=== PATIENT | female | born 1945 | race Caucasian/White ===

== ENCOUNTER 2017-09-07 19:50 | Emergency (ER) | payer MEDICARE, BC ==
[~2017-09-07] VITALS: Ht 160 cm; Wt 63.6 kg
[~2017-09-07 19:50] MED LIST: AMLO5TAB PO; ASPI-611 PO; CHOL10008 PO; DOCU100C40 PO; FISH1CAP15 PO; GABA-581 PO; LISI10TA4 PO; LORA10TA7 PO; MULT-1141 PO; NORCO10T PO; OXYB5TAB80 PO; PANT40TA4 PO; POTA20TA19 PO; PYRI100T2 PO; ROSU5TAB PO; SENN8.6T19 PO; calcium PO
[2017-09-07 20:18] LABS: BASOPHILS # (AUTO) 0.1 X10'3 (0-0.2); BASOPHILS % (AUTO) 0.4 % (0-1); EOSINOPHILS # (AUTO) 0.6 X10'3 (0-0.9); EOSINOPHILS % (AUTO) 4.8 % (0-6); HEMATOCRIT 41.6 % (35.0-45.0); HEMOGLOBIN 14.2 g/dl (12.0-16.0); LYMPHOCYTES % (AUTO) 31.9 % (21-51); MEAN CORPUSCULAR HEMOGLOBIN 32.4 PG (27.0-31.0); MEAN CORPUSCULAR HGB CONC 34.1 % (33.0-36.5); MEAN CORPUSCULAR VOLUME 94.9 FL (78-98); MONOCYTES # (AUTO) 0.9 X10'3 (0-0.9); MONOCYTES % (AUTO) 7.5 % (2-12); NEUTROPHILS # (AUTO) 6.9 X10'3 (1.8-7.7); NEUTROPHILS % (AUTO) 55.4 % (42-75); PLATELET COUNT 252 X10'3 (140-440); RED BLOOD COUNT 4.39 X10'6 (4.20-5.60); RED CELL DISTRIBUTION WIDTH 15.1 % (11.5-14.5); WHITE BLOOD COUNT 12.4 X10'3 (4.5-11.0)
[2017-09-07 20:27] LABS: PARTIAL THROMBOPLASTIN TIME 28 SECONDS (22-32); PROTHROMBIN TIME 10.3 SECONDS (9.0-12.0)
[2017-09-07 20:32] LABS: ALANINE AMINOTRANSFERASE 21 U/L (12-78); ALBUMIN 3.6 G/DL (3.4-5.0); ALBUMIN/GLOBULIN RATIO 1.1 (1.1-1.5); ALKALINE PHOSPHATASE 90 IU/L (46-116); ANION GAP 9 (8-16); ASPARTATE AMINO TRANSFERASE 18 U/L (10-37); BILIRUBIN,TOTAL 0.5 MG/DL (0.1-1.0); BLOOD UREA NITROGEN 14 MG/DL (7-18); BUN/CREATININE RATIO 6.6 (6.6-38.0); CALCIUM 8.6 MG/DL (8.5-10.1); CHLORIDE 96 MMOL/L (99-107); CREATININE 2.13 MG/DL (0.40-0.90); GLUCOSE 130 MG/DL (70-104); POTASSIUM 3.8 MMOL/L (3.5-5.1); SODIUM 132 MMOL/L (135-145); TOTAL CARBON DIOXIDE 26.8 MMOL/L (24-32); eGFR 23 ML/MIN
[2017-09-07] MEDS ORDERED: normal saline 1000ML IV soln IVB ONE (21:05)
[2017-09-07 21:06] LABS: CLARITY,URINE SLIGHTLY CLOUDY (Clear); COLOR,URINE YELLOW (Yellow); GLUCOSE, URINE NEGATIVE (Neg); KETONES,URINE TRACE mg/dl (Neg); LEUKOCYTE ESTERASE ,URINE NEGATIVE (Neg); NITRITES, URINE NEGATIVE (Neg); OCCULT BLOOD,URINE NEGATIVE (Neg); PROTEIN,URINE 100 mg/dl (Neg); UROBILINOGEN,URINE 0.2 E.U/dL (0.2-1.0)
[2017-09-07 21:10] LABS: UA COLLECTION TYPE CLN CATCH MIDSTREAM
[2017-09-07 21:14] LABS: BACTERIA,URINE 2+ /HPF (Neg); MUCUS STRANDS MODERATE /LPF (Neg); SQUAMOUS EPITHELIAL CELL,UR FEW /LPF (FEW)
[2017-09-07 21:51] VITALS: BP 143/66
== END 2017-09-07 21:54 | disposition home or self-care (01) ==
LOC: ER 19:50
DX: R53.1 Weakness (principal); I10 Essential (primary) hypertension; I71.4 Abdominal aortic aneurysm, without rupture; Z90.49 Acquired absence of other specified parts of digestive tract; Z79.82 Long term (current) use of aspirin; Z79.899 Other long term (current) drug therapy
CPT/HCPCS: 36415; 71045; 80053; 81001; 84484; 85025; 85610; 85730; 87077; 87088; 87186; 93005; 96360; 99285; J7030

== ENCOUNTER 2019-01-19 05:22 | Inpatient (IN) | payer MEDICARE, BC ==
[2019-01-14 11:44] LABS: BASOPHILS # (AUTO) 0.1 X10'3 (0-0.2); BASOPHILS % (AUTO) 0.8 % (0-1); EOSINOPHILS # (AUTO) 0.6 X10'3 (0-0.9); EOSINOPHILS % (AUTO) 6.7 % (0-6); LYMPHOCYTES # (AUTO) 3.2 X10'3 (1.1-4.8); LYMPHOCYTES % (AUTO) 38.3 % (21-51); MEAN CORPUSCULAR HEMOGLOBIN 32.4 PG (27.0-31.0); MEAN CORPUSCULAR HGB CONC 34.6 g/dL (33.0-36.5); MEAN CORPUSCULAR VOLUME 93.6 FL (78-98); MEAN PLATELET VOLUME 6.1 FL (7.4-10.4); MONOCYTES # (AUTO) 0.5 X10'3 (0-0.9); MONOCYTES % (AUTO) 6.3 % (2-12); NEUTROPHILS % (AUTO) 47.9 % (42-75); PRE OP HEMATOCRIT 43.2 % (35.0-45.0); PRE OP HEMOGLOBIN 14.9 g/dL (12.0-16.0); PRE OP PLATELET COUNT 261 X10'3 (140-440); RED BLOOD COUNT 4.61 X10'6 (4.20-5.60); RED CELL DISTRIBUTION WIDTH 14.6 % (11.5-14.5)
[2019-01-14 12:01] LABS: PRE OP PROTIME 10.1 SECONDS (9.0-12.0)
[2019-01-14 12:11] LABS: ALBUMIN 3.8 G/DL (3.4-5.0); ALKALINE PHOSPHATASE 88 IU/L (46-116); BLOOD UREA NITROGEN 14 MG/DL (7-18); BUN/CREATININE RATIO 11.7 (6.6-38.0); CALCIUM 8.8 MG/DL (8.5-10.1); CHLORIDE 101 MMOL/L (99-107); PRE OP ALT 29 U/L (30-65); PRE OP ANION GAP 8 (8-16); PRE OP AST 17 U/L (10-37); PRE OP BILIRUB, TOTAL 0.3 MG/DL (0.0-1.0); PRE OP GLUCOSE 99 MG/DL (70-104); PRE OP POTASSIUM 3.6 MMOL/L (3.4-5.1); PRE OP SODIUM 136 MMOL/L (135-145); TOTAL CARBON DIOXIDE 26.6 MMOL/L (24-32); TOTAL PROTEIN 7.5 G/DL (6.4-8.2); eGFR 44 ML/MIN
[2019-01-14 12:13] LABS: CLARITY,URINE CLEAR (Clear); COLOR,URINE YELLOW (Yellow); GLUCOSE, URINE NEGATIVE (Neg); KETONES,URINE NEGATIVE (Neg); LEUKOCYTE ESTERASE ,URINE NEGATIVE (Neg); NITRITES, URINE NEGATIVE (Neg); OCCULT BLOOD,URINE NEGATIVE (Neg); PROTEIN,URINE 30 mg/dl (Neg); UROBILINOGEN,URINE 0.2 E.U/dL (0.2-1.0)
[2019-01-14 12:17] LABS: UA COLLECTION TYPE CLN CATCH MIDSTREAM
[2019-01-14 12:18] LABS: BACTERIA,URINE FEW /HPF (Neg); RBC,URINE NONE SEEN /HPF (0-2); SQUAMOUS EPITHELIAL CELL,UR FEW /LPF (FEW); WBC,URINE 0-4 /HPF (0-4)
[~2019-01-19] VITALS: Ht 160 cm; Wt 64.4 kg
[2019-01-19] VITALS (27 sets, daily range): BP systolic 92–173; BP diastolic 47–73
[~2019-01-19 05:22] MED LIST changes: +ALBU8.5H8 INH; -ASPI-611 PO; +ASPI81TA52 PO; +BUDE10.22 INH; -CHOL10008 PO; +CHOL50004 PO; +CYAN25003 PO; +DIPH25TA62 PO; +DOCU-148 PO; -DOCU100C40 PO; -FISH1CAP15 PO; +IBUP-1986 PO; +LEG CRAMPS PO; -LISI10TA4 PO; -LORA10TA7 PO; +MECL-111 PO; -MULT-1141 PO; -NORCO10T PO; +OXYB5TAB16 PO; -OXYB5TAB80 PO; +PANT-47 PO; -PANT40TA4 PO; +POTA-82 PO; -POTA20TA19 PO; -PYRI100T2 PO; +QUIN1TAB25 PO; +SENN-162 PO; -SENN8.6T19 PO; -calcium PO; +ringers solution, lacted 1,000 ML IV SCH
[2019-01-19] MEDS ORDERED: cefazolin/dext.iso 2gm/50ml 50 ML IV ONE (05:30)
[2019-01-19] MEDS ORDERED: famotidine 20mg tablet PO ONE (05:30)
[2019-01-19] MEDS ORDERED: albuterol 2.5 MG/3 ML nebule NEB ONE (05:30)
[2019-01-19] MEDS ORDERED: DOCUMENT DATE & TIME OF BETA-BLOCKER PO ONE (05:30)
[2019-01-19] MEDS ORDERED: nitroGLYCERIN-Tridil 50MG/D5W 250 ML IV PRN (05:32)
[2019-01-19] MEDS ORDERED: LIDOcaine 1% (10mg/ml) 2ml vial ONE ×2 (05:45→07:22)
[2019-01-19] MEDS ORDERED: heparin 10,000 units/1 ML INJ ONE ×2 (07:14→07:22)
[2019-01-19] MEDS ORDERED: LIDOcaine 1% 30ml preserv. free vial ONE ×2 (07:15→07:22)
[2019-01-19] MEDS ORDERED: ringers solution, lacted 1,000 ML IV SCH (08:19)
[2019-01-19] MEDS ORDERED: proCHLORperazine 10 MG/2 ml inj IV PRN (08:20)
[2019-01-19] MEDS ORDERED: meperidine/PF 25mg/ml syringe IV PRN ×3 (08:20)
[2019-01-19] MEDS ORDERED: ondansetron/PF 4mg/2ml inj IV PRN ×2 (08:20→08:55)
[2019-01-19] MEDS ORDERED: morphine 4 MG/ML inj SYRINge IV PRN ×2 (08:20)
[2019-01-19] MEDS ORDERED: ePHEDrine 50MG/ML INJ. ONE (08:27)
[2019-01-19] MEDS ORDERED: ondansetron/PF 4mg/2ml inj ONE (08:27)
[2019-01-19] MEDS ORDERED: dexamethasone sod phosphate 10mg/ml inj ONE (08:27)
[2019-01-19] MEDS ORDERED: sevoflurane 250ml liquid IH ONE (08:27)
[2019-01-19] MEDS ORDERED: neostigmine methylsulfate 1 MG/ML 10ml vial ONE (08:27)
[2019-01-19] MEDS ORDERED: midazolam 2 mg/2 ml injection ONE (08:30)
[2019-01-19] MEDS ORDERED: propofol inj 20 ML IV ONE (08:30)
[2019-01-19] MEDS ORDERED: rocuronium 10mg/ml inj IV ONE (08:30)
[2019-01-19] MEDS ORDERED: fentaNYL/PF 50MCG/1 ML 2ML syringe ONE (08:30)
[2019-01-19] MEDS ORDERED: naloxone 0.4 mg/ml inj IV PRN (08:55)
[2019-01-19] MEDS ORDERED: CADD PCA waste documentation MC PRN (08:55)
[2019-01-19] MEDS ORDERED: sugammadex 200mg/2ml injection IV ONE (09:27)
--- NOTE | 2019-01-19 10:25 | NUR ---
NEUROCHECKS COMPLETE AND PATIENT SHOWS NO OBSERVABLE NEUROLOGICAL DEFICITS FROM BASELINE AT THIS TIME.
--- NOTE | 2019-01-19 10:25 | NUR ---
Received from OR via BED , accompanied by Anesthesiologist DR LENZ and report given by Anesthesiolgist. PATIENT WAKING UP, C/O PAIN CADD TO BE STARTED, V/S WNL, NEUROVASCULAR CHECKS INTACT. 18G RUE, ART LINE RUE, SCD ON, DRESSING TO LEFT NECK CDI WITH NARESH WITH MINIMAL OUTPUT.
[2019-01-19] MEDS: HYDROmorphone/NS 1 mg/ml CADD 50 ML IV SCH ×8 (10:33→23:00)
--- NOTE | 2019-01-19 11:45 | NUR ---
PATIENT A&OX4, DENIES PAIN, V/S WNL, NEUROVASCULAR CHECKS INTACT. 20G PIV, ART LINE RUE, CLEAR , SCD ON, DRESSING TO LEFT NECK CDI WITH NARESH WITH MINIMAL OUTPUT. TAKEN TO ICU WITH ALL BELONGINGS AND HOOKED UP TO MONITORS IN ROOM AND REPORT GIVEN TO RECOVERER WHO HAS TAKEN OVER PATIENT CARE.
[2019-01-19] MEDS ORDERED: diphenhydrAMINE 25mg capsule PO PRN (12:35)
[2019-01-19] MEDS: phenylephrine inj 20 MG in normal saline 250ml IV soln 248 ML IV SCH ×3 (12:40→19:20)
--- NOTE | 2019-01-19 13:30 | NUR ---
patient on nipride, blood pressure dropped to 59/22 and heart rate to 48., patient became symptomatic and nauseous. Nipride turned off and phenylephrine was started at 25mcg. Patient blood pressure increased so phenylephrine was titrated. Phenylephrine was then at 0.2mcg and patients blood pressure stayed within parameters.
[2019-01-19 14:24] LABS: BASOPHILS # (AUTO) 0.1 X10'3 (0-0.2); BASOPHILS % (AUTO) 0.6 % (0-1); EOSINOPHILS % (AUTO) 0.2 % (0-6); LYMPHOCYTES % (AUTO) 12.6 % (21-51); MEAN CORPUSCULAR HEMOGLOBIN 32.1 PG (27.0-31.0); MEAN CORPUSCULAR HGB CONC 33.7 g/dL (33.0-36.5); MEAN CORPUSCULAR VOLUME 95.3 FL (78-98); MEAN PLATELET VOLUME 6.5 FL (7.4-10.4); MONOCYTES # (AUTO) 0.2 X10'3 (0-0.9); MONOCYTES % (AUTO) 1.3 % (2-12); NEUTROPHILS # (AUTO) 13.6 X10'3 (1.8-7.7); NEUTROPHILS % (AUTO) 85.3 % (42-75); PRE OP HEMATOCRIT 36.2 % (35.0-45.0); PRE OP HEMOGLOBIN 12.2 g/dL (12.0-16.0); PRE OP PLATELET COUNT 252 X10'3 (140-440); RED CELL DISTRIBUTION WIDTH 14.4 % (11.5-14.5)
[2019-01-19 14:34] LABS: ALBUMIN 3.1 G/DL (3.4-5.0); ALKALINE PHOSPHATASE 70 IU/L (46-116); BLOOD UREA NITROGEN 9 MG/DL (7-18); BUN/CREATININE RATIO 8.3 (6.6-38.0); CALCIUM 7.9 MG/DL (8.5-10.1); CHLORIDE 102 MMOL/L (99-107); CREATININE 1.08 MG/DL (0.40-0.90); PRE OP ALT 29 U/L (30-65); PRE OP ANION GAP 7 (8-16); PRE OP AST 27 U/L (10-37); PRE OP BILIRUB, TOTAL 0.3 MG/DL (0.0-1.0); PRE OP GLUCOSE 149 MG/DL (70-104); PRE OP SODIUM 137 MMOL/L (135-145); TOTAL CARBON DIOXIDE 27.8 MMOL/L (24-32); TOTAL PROTEIN 6.3 G/DL (6.4-8.2); eGFR 50 ML/MIN
[2019-01-19 14:43] LABS: PRE OP POTASSIUM 2.9 MMOL/L (3.4-5.1)
[2019-01-19] MEDS ORDERED: potassium Cl 20mEq/100mL bag 100 ML IV PRN (14:55)
[2019-01-19] MEDS ORDERED: potassium Cl 20 mEq SR tablet PO PRN (15:50)
[2019-01-19 16:09] LABS: MAGNESIUM 1.7 MG/DL (1.5-2.4)
[2019-01-19] MEDS: potassium Cl 20 mEq SR tablet PO PRN ×2 (16:28→20:18)
--- NOTE | 2019-01-19 16:30 | NUR ---
Patient in room ICU 2037. I have received report from Tram FRIEND and had the opportunity to ask questions and assume patient care. Pt switched back to Nipride for high BP.
--- NOTE | 2019-01-19 18:24 | NUR ---
Problems reprioritized. Patient report given, questions answered & plan of care reviewed with Bandar FRIEND.
[2019-01-19] MEDS: nitroPRUSSIDE in NS 100 ML IV PRN (19:14)
[2019-01-19] MEDS: potassium Cl 20 mEq SR tablet PO SCH (20:00)
[2019-01-19] MEDS ORDERED: ibuprofen 200mg tablet PO SCH (20:00)
[2019-01-19] MEDS: gabapentin 300mg capsule PO SCH (20:19)
[2019-01-19] MEDS: meclizine 12.5mg tablet PO SCH (20:19)
[2019-01-19] MEDS: sennosides 8.6mg tablet PO SCH (20:19)
[2019-01-19] MEDS: budesonide 0.5mg/2ml UD nebule IH SCH (20:39)
[2019-01-20] VITALS (24 sets, daily range): BP systolic 140–165; BP diastolic 53–97
[2019-01-20] MEDS: potassium Cl 20 mEq SR tablet PO PRN (00:48)
[2019-01-20] MEDS: HYDROmorphone/NS 1 mg/ml CADD 50 ML IV SCH ×12 (01:00→23:00)
[2019-01-20] MEDS: phenylephrine inj 20 MG in normal saline 250ml IV soln 248 ML IV SCH ×4 (02:00→22:00)
[2019-01-20] MEDS ORDERED: acetaminophen 325mg tablet PO PRN (02:25)
[2019-01-20 03:53] LABS: MAGNESIUM 1.8 MG/DL (1.5-2.4); POTASSIUM 5.4 MMOL/L (3.5-5.1)
[2019-01-20] MEDS: nitroPRUSSIDE in NS 100 ML IV PRN ×2 (05:55→10:23)
--- NOTE | 2019-01-20 06:35 | NUR ---
Patient in room ICU 2037. I have received report from RONNA Portillo and had the opportunity to ask questions and assume patient care.
[2019-01-20] MEDS: lisinopril 20mg tablet PO SCH (07:35)
[2019-01-20] MEDS: amLODIPine 5mg tablet PO SCH (07:35)
[2019-01-20] MEDS: aspirin 81mg tablet.DR PO SCH (07:35)
[2019-01-20] MEDS: gabapentin 300mg capsule PO SCH ×2 (07:35→20:30)
[2019-01-20] MEDS: meclizine 12.5mg tablet PO SCH ×2 (07:35→20:29)
[2019-01-20] MEDS: cyanocobalamin 500mcg tablet PO SCH (07:35)
[2019-01-20] MEDS: enoxaparin 40mg/0.4ml syringe SQ SCH (07:36)
[2019-01-20] MEDS: vitamin D (cholecalciferol) 1,000 unit tablet PO SCH (07:36)
[2019-01-20] MEDS: HYDROchlorothiazide 12.5mg capsule PO SCH (07:36)
[2019-01-20] MEDS: pantoprazole 40mg Tablet.DR PO SCH (07:36)
[2019-01-20] MEDS: docusate sod 100mg capsule PO SCH (07:36)
[2019-01-20] MEDS: K and/or MAG REPLACEMENT MC SCH (08:00)
[2019-01-20] MEDS: potassium Cl 20 mEq SR tablet PO SCH ×2 (08:00→20:00)
[2019-01-20] MEDS ORDERED: nitroGLYCERIN-Tridil 50MG/D5W 250 ML IV PRN (09:39)
[2019-01-20] MEDS: albuterol 2.5 MG/3 ML nebule NEB PRN (10:00)
[2019-01-20 13:30] LABS: ALBUMIN 3.2 G/DL (3.4-5.0); ANION GAP 9 (8-16); BLOOD UREA NITROGEN 11 MG/DL (7-18); BUN/CREATININE RATIO 9.8 (6.6-38.0); CALCIUM 8.4 MG/DL (8.5-10.1); CHLORIDE 103 MMOL/L (99-107); CREATININE 1.12 MG/DL (0.40-0.90); GLUCOSE 101 MG/DL (70-104); PHOSPHORUS 4.3 MG/DL (2.3-4.5); SODIUM 135 MMOL/L (135-145); eGFR 48 ML/MIN
--- NOTE | 2019-01-20 18:19 | NUR ---
Problems reprioritized. Patient report given, questions answered & plan of care reviewed with RONNA Zuñiga.
--- NOTE | 2019-01-20 18:30 | NUR ---
Patient in room ICU 2037. I have received report from Merle FRIEND and had the opportunity to ask questions and assume patient care.
--- NOTE | 2019-01-20 20:00 | NUR ---
Patient tolerated full liquid dinner well, still complains of left surgical sight being numb. Nipride infusing per MD order as patient is hypertensive into the 180's but able to titrate down. Will continue to monitor patient.
[2019-01-20] MEDS: sennosides 8.6mg tablet PO SCH (20:30)
[2019-01-20] MEDS: budesonide 0.5mg/2ml UD nebule IH SCH (20:47)
[2019-01-21] VITALS (18 sets, daily range): BP systolic 112–172; BP diastolic 39–78
--- NOTE | 2019-01-21 00:39 | NUR ---
Nipride was off for 2hr duration but currently back on at 0.1 mcg due to increased BP. Will continue to monitor patient closely.
[2019-01-21] MEDS: HYDROmorphone/NS 1 mg/ml CADD 50 ML IV SCH ×12 (01:00→23:00)
[2019-01-21 03:39] LABS: MAGNESIUM 1.6 MG/DL (1.5-2.4); POTASSIUM 3.9 MMOL/L (3.5-5.1)
[2019-01-21] MEDS: nitroPRUSSIDE in NS 100 ML IV PRN (04:21)
[2019-01-21] MEDS: phenylephrine inj 20 MG in normal saline 250ml IV soln 248 ML IV SCH (04:40)
--- NOTE | 2019-01-21 06:15 | NUR ---
Patient in room ICU 2037. I have received report from restaurant shift supervisor and had the opportunity to ask questions and assume patient care.
[2019-01-21] MEDS: amLODIPine 5mg tablet PO SCH (07:07)
[2019-01-21] MEDS: HYDROchlorothiazide 12.5mg capsule PO SCH (07:07)
[2019-01-21] MEDS: budesonide 0.5mg/2ml UD nebule IH SCH ×2 (07:59→19:40)
[2019-01-21] MEDS: albuterol 2.5 MG/3 ML nebule NEB PRN ×2 (07:59→19:42)
[2019-01-21] MEDS: docusate sod 100mg capsule PO SCH (08:04)
[2019-01-21] MEDS: gabapentin 300mg capsule PO SCH ×2 (08:04→21:14)
[2019-01-21] MEDS: lisinopril 20mg tablet PO SCH (08:04)
[2019-01-21] MEDS: aspirin 81mg tablet.DR PO SCH (08:05)
[2019-01-21] MEDS: meclizine 12.5mg tablet PO SCH ×2 (08:05→21:14)
[2019-01-21] MEDS: pantoprazole 40mg Tablet.DR PO SCH (08:05)
[2019-01-21] MEDS: K and/or MAG REPLACEMENT MC SCH (08:09)
[2019-01-21] MEDS: vitamin D (cholecalciferol) 1,000 unit tablet PO SCH (08:12)
[2019-01-21] MEDS: cyanocobalamin 500mcg tablet PO SCH (08:12)
[2019-01-21] MEDS: potassium Cl 20 mEq SR tablet PO SCH ×2 (08:12→21:15)
[2019-01-21] MEDS: enoxaparin 40mg/0.4ml syringe SQ SCH (08:13)
--- NOTE | 2019-01-21 08:30 | NUR ---
I have reviewed and agree with all medications administered and interventions performed by [facility] Student Young aguilar Addendum: 01/21/19 at 0831 by Anusha Briones RT Amended: Links added.
[2019-01-21] MEDS: sennosides 8.6mg tablet PO SCH (21:15)
--- NOTE | 2019-01-21 22:42 | NUR ---
patient arrived on the unit after 1899. The vital signs taken ICU not this floor. Addendum: 01/21/19 at 2244 by Clary Henry RN Amended: Links added.
[2019-01-22] VITALS: BP 150/59
[2019-01-22] MEDS: HYDROmorphone/NS 1 mg/ml CADD 50 ML IV SCH ×3 (01:00→05:00)
--- NOTE | 2019-01-22 06:40 | NUR ---
Problems reprioritized. Patient report given, questions answered & plan of care reviewed with Iris FRIEND.
[2019-01-22 07:00] VITALS: BP 156/68
--- NOTE | 2019-01-22 07:00 | NUR ---
Patient in room [facility] [id number]. I have received report from Clary FRIEND and had the opportunity to ask questions and assume patient care.
[2019-01-22 07:20] LABS: MAGNESIUM 1.7 MG/DL (1.5-2.4)
[2019-01-22] MEDS: K and/or MAG REPLACEMENT MC SCH (08:00)
[2019-01-22] MEDS: albuterol 2.5 MG/3 ML nebule NEB PRN (08:29)
[2019-01-22] MEDS: budesonide 0.5mg/2ml UD nebule IH SCH (08:29)
[2019-01-22] MEDS: vitamin D (cholecalciferol) 1,000 unit tablet PO SCH (08:47)
[2019-01-22] MEDS: aspirin 81mg tablet.DR PO SCH (08:48)
[2019-01-22] MEDS: pantoprazole 40mg Tablet.DR PO SCH (08:48)
[2019-01-22] MEDS: cyanocobalamin 500mcg tablet PO SCH (08:48)
[2019-01-22] MEDS: docusate sod 100mg capsule PO SCH (08:49)
[2019-01-22] MEDS: gabapentin 300mg capsule PO SCH (08:49)
[2019-01-22] MEDS: amLODIPine 5mg tablet PO SCH (08:49)
[2019-01-22] MEDS: meclizine 12.5mg tablet PO SCH (08:49)
[2019-01-22] MEDS: HYDROchlorothiazide 12.5mg capsule PO SCH (08:50)
[2019-01-22] MEDS: lisinopril 20mg tablet PO SCH (08:51)
[2019-01-22] MEDS: enoxaparin 40mg/0.4ml syringe SQ SCH (08:52)
[2019-01-22] MEDS: potassium Cl 20 mEq SR tablet PO SCH (08:59)
[2019-01-22] MEDS ORDERED: traMADol 50MG tablet PO PRN (10:50)
[2019-01-22 11:00] VITALS: BP 124/60
--- NOTE | 2019-01-22 11:33 | NUR ---
O2 Sat at rest on room air:_84__% If below 89%: Recovery O2 Sat at rest on __4_LPM:_91__%:___% via___NC (mask/nasal cannula, etc..) No further documentation is necessary. If O2 Sat did not drop below 89% on room air,ambulate patient on room air. O2 Sat while ambulating on room air:___% Recovery O2 Sat while ambulating on ___LPM:___% No further documentation is necessary. If patient does not drop below 89% while ambulating, he/she does not qualify for home O2.
--- NOTE | 2019-01-22 14:30 | NUR ---
Pt discharge to home with the help of her sister. Pt is A & O, taking home a portable O2 tank using 4L of O2 Q 24hrs. She will be following up with Dr. Gallegos in 1 week. pt wheeled to the front of hospital where her sister picked her up.
== END 2019-01-22 15:07 | disposition home or self-care (01) | DRG 38 ==
LOC: PAS IN 05:22 → EDSTATUS 10:15 → ICU 2S 11:52 → SUR 3N 01-21 17:06
PROVIDERS: ADMIT Surgery; ATTEND Surgery
PROC: 03CJ0ZZ Extirpation of Matter from Left Common Carotid Artery, Open Approach (ICD-10-PCS; 2019-01-19)
PROC: 03CL0ZZ Extirpation of Matter from Left Internal Carotid Artery, Open Approach (ICD-10-PCS; 2019-01-19)
PROC: 03UJ0KZ Supplement Left Common Carotid Artery with Nonautologous Tissue Substitute, Open Approach (ICD-10-PCS; 2019-01-19)
PROC: 03UL0KZ Supplement Left Internal Carotid Artery with Nonautologous Tissue Substitute, Open Approach (ICD-10-PCS; 2019-01-19)
PROC: 03UN0KZ Supplement Left External Carotid Artery with Nonautologous Tissue Substitute, Open Approach (ICD-10-PCS; 2019-01-19)
PROC: 03CN0ZZ Extirpation of Matter from Left External Carotid Artery, Open Approach (ICD-10-PCS; principal; 2019-01-19 08:27)
DX: I65.22 Occlusion and stenosis of left carotid artery (principal); J84.9 Interstitial pulmonary disease, unspecified; E78.5 Hyperlipidemia, unspecified; I12.9 Hypertensive chronic kidney disease with stage 1 through stage 4 chronic kidney disease, or unspecified chronic kidney disease; I71.4 Abdominal aortic aneurysm, without rupture; J44.9 Chronic obstructive pulmonary disease, unspecified; N18.3 Chronic kidney disease, stage 3 (moderate); G62.9 Polyneuropathy, unspecified; G89.29 Other chronic pain; I95.9 Hypotension, unspecified; M54.9 Dorsalgia, unspecified; R09.02 Hypoxemia; Z80.9 Family history of malignant neoplasm, unspecified; Z82.49 Family history of ischemic heart disease and other diseases of the circulatory system; Z82.5 Family history of asthma and other chronic lower respiratory diseases; Z83.3 Family history of diabetes mellitus; Z87.891 Personal history of nicotine dependence; Z90.710 Acquired absence of both cervix and uterus; Z79.899 Other long term (current) drug therapy; Z79.82 Long term (current) use of aspirin; Z90.49 Acquired absence of other specified parts of digestive tract; Z99.81 Dependence on supplemental oxygen
CPT/HCPCS: 36415; 71046; 80053; 80069; 81001; 82948; 83735; 84132; 85025; 85610; 85730; 86885; 86900; 86901; 87081; 94640; 94760; 95813; 95816; 97116; 97161; 97530; A4618; A6258; A7000; C1768; C9399; G0378; J1100; J1170; J1644; J1650; J2001; J2250; J2370; J2405; J2704; J2710; J3010; J3480; J7040; J7050; J7120; J7626; J8597

== ENCOUNTER 2022-08-24 20:57 | Emergency (ER) | payer MEDICARE, BC ==
[~2022-08-24] VITALS: Ht 160 cm; Wt 60.5 kg
[~2022-08-24 20:57] MED LIST changes: +ALBU8.5H17 INH; -ALBU8.5H8 INH; -MECL-111 PO; +MECL-159 PO; +POTA-366 PO; -POTA-82 PO; +QUIN1TAB16 PO; -QUIN1TAB25 PO; -SENN-162 PO; +SENN-263 PO; -ringers solution, lacted 1,000 ML IV SCH
[2022-08-24 21:20] LABS: BASOPHILS # (AUTO) 0.1 X10'3 (0-0.2); BASOPHILS % (AUTO) 1.1 % (0-1); EOSINOPHILS # (AUTO) 0.3 X10'3 (0-0.9); EOSINOPHILS % (AUTO) 3.5 % (0-6); HEMATOCRIT 31.3 % (35.0-45.0); HEMOGLOBIN 10.1 g/dl (12.0-16.0); LYMPHOCYTES # (AUTO) 3.8 X10'3 (1.1-4.8); LYMPHOCYTES % (AUTO) 38.9 % (21-51); MEAN CORPUSCULAR HEMOGLOBIN 27.2 PG (27.0-31.0); MEAN CORPUSCULAR HGB CONC 32.2 g/dL (33.0-36.5); MEAN CORPUSCULAR VOLUME 84.5 FL (78-98); MEAN PLATELET VOLUME 6.6 FL (7.4-10.4); MONOCYTES # (AUTO) 0.8 X10'3 (0-0.9); MONOCYTES % (AUTO) 8.5 % (2-12); NEUTROPHILS # (AUTO) 4.7 X10'3 (1.8-7.7); PLATELET COUNT 301 X10'3 (140-440); RED CELL DISTRIBUTION WIDTH 19.4 % (11.5-14.5); WHITE BLOOD COUNT 9.9 X10'3 (4.5-11.0)
[2022-08-24 21:32] LABS: ALANINE AMINOTRANSFERASE 7 U/L (12-78); ALBUMIN 3.2 G/DL (3.4-5.0); ALBUMIN/GLOBULIN RATIO 0.9 (1.1-1.5); ALKALINE PHOSPHATASE 85 IU/L (46-116); ANION GAP 10 (8-16); ASPARTATE AMINO TRANSFERASE 9 U/L (10-37); BILIRUBIN,TOTAL 0.3 MG/DL (0.1-1.0); BLOOD UREA NITROGEN 18 MG/DL (7-18); BUN/CREATININE RATIO 11.5 (10.0-20.0); CALCIUM 8.5 MG/DL (8.5-10.1); CHLORIDE 101 MMOL/L (99-107); CREATININE 1.56 MG/DL (0.40-0.90); GLUCOSE 103 MG/DL (70-104); POTASSIUM 3.2 MMOL/L (3.5-5.1); SODIUM 136 MMOL/L (135-145); TOTAL CARBON DIOXIDE 25.4 MMOL/L (24-32); TOTAL PROTEIN 6.7 G/DL (6.4-8.2); eGFR 32 ML/MIN
[2022-08-24 21:38] LABS: MAGNESIUM 2.2 MG/DL (1.5-2.4)
[2022-08-24] MEDS ORDERED: metoprolol tartrate 50mg tablet PO ONE (22:35)
[2022-08-24] MEDS ORDERED: LORazepam 1 MG tablet PO ONE (22:35)
[2022-08-24 22:45] LABS: ANISOCYTOSIS 2+; ELLIPTOCYTES 1+; PLATELET ESTIMATE NORMAL
[2022-08-24 22:46] LABS: HYPOCHROMASIA 1+
[2022-08-24] MEDS ORDERED: cloNIDine 0.1 mg tablet PO ONE (23:45)
[2022-08-25] MEDS ORDERED: amLODIPine 5mg tablet PO ONE (00:10)
[2022-08-25] MEDS ORDERED: AMLO5TAB PO (00:41)
[2022-08-25 01:23] VITALS: BP 152/59
== END 2022-08-25 02:44 | disposition home or self-care (01) ==
LOC: ER 20:59
DX: I16.0 Hypertensive urgency (principal); J44.9 Chronic obstructive pulmonary disease, unspecified; Z79.899 Other long term (current) drug therapy
CPT/HCPCS: 36415; 71045; 80053; 83735; 83880; 84484; 85008; 85025; 93005; 99285